=== PATIENT | male | born 1990 | race Caucasian/White ===

== ENCOUNTER 2018-10-01 07:18 | Emergency (ER) | payer SELFPAY ==
[2018-10-01] MEDS ORDERED: HYDROCODONE/APAP 5/325 MG TAB ONE (08:30)
--- NOTE | 2018-10-01 09:11 | RAD REPORT ---
EXAM DESCRIPTION: RAD - Wrist Left 3 View - 10/01/2018 8:46 am CLINICAL HISTORY: PAIN Pain COMPARISON: None FINDINGS: Left wrist and left hand- multiple projections are submitted There is no evidence of acute fracture or dislocation seen. Rounded foreign body is seen along the pa lmar soft tissues of the hand projecting between the fourth and fifth metacarpal shafts.
--- NOTE | 2018-10-01 09:39 | ER ---
Nurse's Notes [facility] Name: Ace Moran Age: 28 yrs Sex: Male : 1990 Arrival Date: 10/01/2018 Time: 07:25 Bed 14 Private MD: None, None Diagnosis: Contusion of left hand Presentation: 10/01 07:26 Presenting complaint: Patient states: c/o L hand pain afterusing a drill at home ss yesterday causing it to bend hand "backwards". Transition of care: patient was not received from another setting of care. Onset of symptoms was September 30, 2018. Risk Assessment: Do you want to hurt yourself or someone else? Patient reports no desire to harm self or others. Initial Sepsis Screen: Does the patient meet any 2 criteria? No. Patient's initial sepsis screen is negative. Does the patient have a suspected source of infection? No. Patient's initial sepsis screen is negative. Care prior to arrival: None. 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 - Social history:: Smoking status: Patient/guardian denies using tobacco. - Ebola Screening: : Patient denies exposure to infectious person Patient denies travel to an Ebola-affected area in the 21 days before illness onset. - Family history:: not pertinent. Vital Signs: 07:28 BP 131 / 94; Pulse 99; Resp 15; Temp 97.8(TE); Pulse Ox 100% on R/A; Height 5 ft. 9 in. ss (175.26 cm); Pain 8/10; ED Course: 07:25 Patient arrived in ED. sb2 07:25 None, None is Private Physician. sb2 07:27 Triage completed. ss 07:28 Arm band placed on right wrist. ss 07:30 Elis Stephenson MD is Attending Physician. ma2 08:19 Kaylene Gibbs RN is Primary Nurse. ss 08:40 X-ray completed. Portable x-ray completed in exam room. Patient tolerated procedure jb2 well. 08:44 Hand Left 3 View XRAY In Process Unspecified. EDMS 08:44 Wrist Left (3 View) XRAY In Process Unspecified. EDMS 09:33 Leighton wrap to left wrist. 3 09:49 No provider procedures requiring assistance completed. Patient did not have IV access ss during this emergency room visit. Administered Medications: 08:20 Drug: Maxbass 5 mg-325 mg 1 tabs Route: PO; 09:49 Follow up: Response: No adverse reaction; Pain is decreased Outcome: 09:39 Discharge ordered by . ma2 09:49 Discharged to home ambulatory, with family. 09:49 Condition: good 09:49 Discharge instructions given to patient, family, Instructed on discharge instructions, follow up and referral plans. medication usage, Demonstrated understanding of instructions, follow-up care, medications, Prescriptions given X 1. 09:49 Patient left the ED. 09:56 Patient left the ED. ss Signatures: Dispatcher [employer] EDHI Alessio Vera jb2 Kaylene Gibbs RN RN Tracy Dalton RN RN Jamari, Danelle dh3 Elis Stephenson MD MD sd2 Lorenza Rader 2
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
== END 2018-10-01 09:56 | disposition home or self-care (01) ==
LOC: ER 07:18
DX: S60.222A Contusion of left hand, initial encounter (principal)
CPT/HCPCS: 99284

== ENCOUNTER 2020-04-02 15:01 | Emergency (ER) | payer BC, SELFPAY ==
--- OUTSIDE RECORDS SUMMARY | 2020-04-02 15:03 | XMS REPORT | Clinical Summary ---
:1990 Author Organization [facility] Address [address] [place] [address] Care Team Providers Name Role Phone Pcp Primary Care Provider Unavailable Allergies Active Allergy Reactions Severity Noted Date Comments Hydrocodone-Acetaminophen Other (See Comments) Low 019 hiccoughs x5 days Medications Not on file Active Problems Not on file Encounters Date Type Specialty Care Team Description 04/06/2019 Anesthesia Event Missy Gardner CRNA 04/06/2019 Surgery Idalmis Almonte IMPLANT E XCHANGE,SANJAY Dykes MD 04/06/2019 Hospital Encounter Idalmis Almonte Vit reous prolapse of MD Donis right eye (Prim yenny Dx) after 04/02/2019 Social History Tobacco Use Types Packs/Day Years Used Date Current Every Day Smoker 0.5 Smokeless Tobacco: Never Used Tobacco Cessation: Ready to Quit: Yes; C ounseling Given: No Alcohol Use Drinks/Week oz/Week Comments No Alcohol Habits Answer Date Recorded How often do you have a drink containing alcohol? Never 04/06/2019 How many drinks containing alcohol do you have on a typical Not asked day when you are drinking? How often do you have six or more drinks on one occasion? No t asked Sex Assigned at Date Recorded Not on file Job Start Date Occupation Industry Not on file Not on file Not on file Travel History Travel Start Travel End No recent travel history available. Last Filed Vital Signs Vital Sign Reading Time Taken Blood Pressure 120/74 04/06/2019 11:30 AM CDT Pulse 72 04/06/2019 11:30 AM CDT Temperature 37.1 C (98.7 F) 04/06/2019 11:07 AM CDT Respiratory Rate 17 04/06/2019 11:30 AM CDT Oxygen Saturation 99% 04/06/2019 11:30 AM CDT Inhaled Oxygen Concentration - - Weight 72.6 kg (160 lb) 04/06/2019 8:08 AM CDT Height 175.3 cm (5' 9") 04/06/2019 8:08 AM CDT Body Mass Index 23.63 04/06/2019 8:08 AM CDT Plan of Treatment Not on file Implants Implanted Type Area Lemon Picker Device Shelf Model / Identifier Expiration Serial / Date Lot Stephany 3-Pc Posterior Chamber Iol 21.0d Ophthalmology Right: FAUSTO ZEISS:FAUSTO 01/30/2023 CT STEPHANY 602 21.0 / Implanted: Qty: 1 on 04/06/2019 by Idalmis Almonte MD Eye ZEISS [id number] / Procedures Procedure Name Priority Date/Time Associated Diagnosis Comme nts INJECTION,INTRAVITREAL 04/06/2019 8:55 AM Displacemen t of CDT intraocular lens, initial encounte r Vitreous prolapse of right eye Retinal hemorrhage of right eye Special Needs (MILADYS Jordan/ DR NUNO),(25 GA, M AC/RETRO BULBAR BLOCK) VITRECTOMY,FOCAL ENDOLASER 04/06/2019 8:55 AM Displac ement of intraocular PHOTOCOAGULATION CDT lens, initial e ncounter Vitreous prolaps e of right eye Retinal hemorrhage of right eye Special Needs (MILADYS Jordan/ DR NUNO),(25 GA, M AC/RETRO BULBAR BLOCK) PARACENTESIS,ANTERIOR CHAMBER OF 04/06/2019 8:5 5 AM Displacement of intraocular EYE CDT lens, initial en counter Vitreous prolapse of right eye Retinal hemorrhage of right eye Special Needs (MILADYS Jordan/ DR NUNO),(25 GA, M AC/RETRO BULBAR BLOCK) VITRECTOMY,MECHANICAL PARS PLANA 04/06/2019 8:5 5 AM Displacement of intraocular CDT lens, initial en counter Vitreous prolapse of right eye Retinal hemorrhage of right eye Special Needs (MILADYS Jordan/ DR NUNO),(25 GA, M AC/RETRO BULBAR BLOCK) IMPLANT EXCHANGE,IOL 04/06/2019 8:55 AM CDT Displacem ent of intraocular lens, initial encounte r Vitreous prolaps e of right eye Retinal hemorrhage of right eye Special Needs (MILADYS Jordan/ DR NUNO),(25 GA, M AC/RETRO BULBAR BLOCK) after 04/02/2019 Results Not on fileafter 04/02/2019 Insurance Payer Benefit Plan / Subscriber ID Type Phone Address Group BLUE CROSS/BLUE BCBS OS xxxxxxxxxxxx PPO [phone] [id number] SHIELD POS/PPO/[place] [address]
--- OUTSIDE RECORDS SUMMARY | 2020-04-02 15:04 | XMS REPORT | Continuity of Care Document ---
:1990 Author Organization [facility] t Address [address] [place] [address] Care Team Providers Name Role Phone Pcp Primary Care Physician Unavailable Hemmati OD Attending Clinician Angelika SANCHEZ Attending Clinician 3 Attending Clinician Unavailable Donis Almonte MD Attending Clinician Donis Almonte MD Attending Clinician Jj MINOR Attending Clinician Payers Payer Name Policy Type Policy Number Effective Date Expiration Date S villa BLUE CROSS/BLUE xxxxxxxxxxxx [facility] Medical POS/PPO/EPOxxxxx [place] [id number] [facility] [id number], [place] [address] Problems Condition Condition Condition Status Onset Resolution Last Treating Co mments Source Name Details Category Date Date Treatment Clinician Date Sprain of Sprain of Problem Active [facility] wrist, wrist, Memoria initial initial l encounter encounter Outp ati ent Clinics Pain in Pain in Problem Active [facility] joint of joint of [facility] - left wrist left wrist Me moria l Outpati ent Clinics Closed Closed Problem Active [facility] nondisplac nondisplac Deb kes - ed ed Memoria fracture fracture l of middle of middle Outp ati third of third of ent scaphoid scaphoid Clinic s bone of bone of right right wrist, wrist, initial initial encounter encounter Closed Closed Diagnosis Active [facility] nondisplac nondisplac Deb kes - ed ed Memoria fracture fracture l of middle of middle Outp ati third of third of ent scaphoid scaphoid Clinic s of left of left wrist with wrist with routine routine healing, healing, subsequent subsequent encounter encounter Nondisplac Nondisplac Problem Active [facility] - fracture fracture Memori a of middle of middle l third of third of Outpat i navicular navicular ent [scaphoid] [scaphoid] Cl inics bone of bone of right right wrist, wrist, subsequent subsequent encounter encounter for for fracture fracture with with delayed delayed healing healing Allergies, Adverse Reactions, Alerts Allergy Allergy Status Severity Reaction(s) Onset Inactive Treating Comm ents Source Name Type Date Date Clinician Hydrocod Propensi Active Other (See nitincoughkaleigh [facility] one-Acet ty to Comments) 8-05 x5 days Luke s - aminophe adverse 00:00: Medical n reaction 00 Center s Social History Social Habit Start Date Stop Date Quantity Comments Source History SDOH Alcohol [facility] - Std Drinks [facility] History SDOH Alcohol [facility] Binge [facility] Sex Assigned At [facility] Cigarettes smoked 2019-04-06 2019-04-06 [facility] - current (pack per 00:00:00 00:00:00 [facility] Center day) - Reported History SDOH Alcohol 2019-04-06 2019-04-[address] [facility] - Frequency 00:00:00 00:00:00 [facility] Smoking Status Start Date Stop Date Source Current every day smoker 2019-04-06 00:00:00 [facility] Medications This patient has no known medications. Vital Signs Vital Name Observation Time Observation Value Comments Source Systolic blood 2019-04-06 11:30:00 120 mm[Hg] [facility] pressure [facility] Diastolic blood 2019-04-06 11:30:00 74 mm[Hg] [facility] Heart rate 2019-04-06 11:30:00 72 /min [facility] Respiratory rate 2019-04-06 11:30:00 17 /min [facility] Oxygen saturation in 2019-04-06 11:30:00 99 /min [facility] - Arterial blood by Medical Ce nter Pulse oximetry Body temperature 2019-04-06 11:07:00 37.06 Mariah [facility] Body height 2019-04-06 08:08:00 175.3 cm [facility] Body weight Measured 2019-04-06 08:08:00 72.576 kg [facility] BMI 2019-04-06 08:08:00 23.63 kg/m2 [facility] Procedures Procedure Date / Time Performing Clinician Source Performed IMPLANT EXCHANGE,IOL 2019-04-06 08:55:00 Idalmis Almonte [facility] Donis [facility] VITRECTOMY,MECHANICAL PARS 2019-04-06 08:55:00 Alka Carney [facility] PARACENTESIS,ANTERIOR 2019-04-06 08:55:00 Alka Carney [facility] CHAMBER OF EYE [facility] VITRECTOMY,FOCAL ENDOLASER 2019-04-06 08:55:00 Alka Carney [facility] PHOTOCOAGULATION [facility] INJECTION,INTRAVITREAL 2019-04-06 08:55:00 Alka Carney [facility] Encounters Start End Encounter Admission Attending Care Care Encounter Source Date/Time Date/Time Type Type Clinicians Facility Department ID 2019-06-25 2019-06-25 Office HemTORI gil [id number] 10:03:44 11:02:29 Visit Ariana AMBULATOR [id number] Y [id number] [id number] 2019-06-09 2019-06-09 Office Alka Carney [id number] 07:58:08 08:18:08 Visit 3, Ods AMBULATOR [id number] Y [id number] [id number] 2019-05-05 2019-05-05 Office TORI Carney [id number] 09:31:26 11:13:37 Visit Alka AMBULATOR [id number] Y [id number] [id number] 2019-04-23 2019-04-23 Office Gage VALLE [id number] 08:42:13 08:52:13 Visit , Idalmis AMBULATOR 350.1.13.21 Donis Y 0.2.7.2.686 [id number] 2019-04-14 2019-04-14 Office Angelika MEGANAnita [id number] 09:22:19 09:37:19 Visit Alka AMBULATOR [id number] Y [id number] [id number] 2019-04-07 2019-04-07 Office Gage AVLLE [id number] 09:41:23 10:03:49 Visit , Idalmis AMBULATOR 350.1.13.21 Donis Y 0.2.7.2.686 [id number] 2019-04-07 2019-04-07 Office AngelikaMEGANAnita [id number] 08:37:41 08:52:41 Visit Alka AMBULATOR [id number] Y [id number] [id number] 2019-04-02 2019-04-02 Office Alka Carney MEGANAnita 1.2.840.11 [id number] 15:43:31 16:28:31 Visit 3, Ods AMBULATOR 350.1.13.21 Y [id number] 2018-12-29 2018-12-29 [facility] [id number] [facility] 10:30:00 10:30:00 [facility] 2018-11-26 2018-11-26 [facility] [id number] 08:30:00 08:30:00 [facility] 2018-10-29 2018-10-29 [facility] [id number] [address] 08:30:00 08:30:00 [facility] 2018-10-15 2018-10-15 Outpatient Shelby Maier [id number] [address] 09:00:00 09:00:00 [facility] Results This patient has no known results.
[2020-04-02] MEDS ORDERED: LIDOCAINE 1% MPF 5 ML VIAL ONE (15:40)
--- NOTE | 2020-04-02 16:03 | ER ---
Nurse's Notes [facility] Name: Ace Moran Age: 29 yrs Sex: Male : 1990 Arrival Date: 04/02/2020 Time: 15:04 Bed 20 Private MD: Diagnosis: Laceration of lip and oral cavity without foreign body Presentation: 04/02 15:11 Chief complaint: Patient states: Bitten by his own dog at home just prior to arrival. ss Laceration noted to R lower lip. No active bleeding noted at this time. Pt reports that dog was a 7 lb [place]ua, is UTD with vaccinations. Coronavirus screen: Client denies travel out of the [place] in the last 14 days. At this time, the client does not indicate any symptoms associated with coronavirus-19. Ebola Screen: Patient denies exposure to infectious person. Patient denies travel to an Ebola-affected area in the 21 days before illness onset. Initial Sepsis Screen: Does the patient meet any 2 criteria? No. Patient's initial sepsis screen is negative. Does the patient have a suspected source of infection? No. Patient's initial sepsis screen is negative. Risk Assessment: Do you want to hurt yourself or someone else? Patient reports no desire to harm self or others. Onset of symptoms was April 02, 2020. 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 - Social history:: Smoking status: Patient reports the use of cigarette tobacco products, smokes one-half pack cigarettes per day. Screenin:13 Abuse screen: Denies threats or abuse. Denies injuries from another. Nutritional ss screening: No deficits noted. Tuberculosis screening: Never had TB. Fall Risk None identified. Assessment: 15:19 Reassessment: [place] [employer] notified of dog bite. 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 Vital Signs: 15:11 BP 139 / 99; Pulse 95; Resp 17; Temp 98.4(TE); Pulse Ox 100% on R/A; Weight 77.11 kg; ss Height 5 ft. 9 in. (175.26 cm); Pain 8/10; 15:11 Body Mass Index 25.10 (77.11 kg, 175.26 cm) ED Course: 15:04 Patient arrived in ED. mr 15:13 Triage completed. 15:13 Arm band placed on right wrist. 15:21 Arturo Blackwell PA is PHCP. rust 15:21 Amos Fay MD is Attending Physician. rust 15:52 Raysa Mcmahon, RN is Primary Nurse. 16:13 Patient has correct armband on for positive identification. Bed in low position. Call ss light in reach. 16:13 No provider procedures requiring assistance completed. Patient did not have IV access ss during this emergency room visit. Administered Medications: 15:45 Drug: Lidocaine (1 %) 5 mg {Note: ADmin by ANDREW Warren.} Route: Infiltration; Outcome: 16:02 Discharge ordered by . rust 16:13 Discharged to home ambulatory. 16:13 Condition: good 16:13 Discharge instructions given to patient, Instructed on discharge instructions, follow up and referral plans. medication usage, wound care, Demonstrated understanding of instructions, follow-up care, medications, wound care, Prescriptions given X 1. 16:14 Patient left the ED. Signatures: Kaitlin Oscar mr GibbsKaylene, RN RN Arturo Blackwell PA PA rust Raysa Mcmahon, RN RN
--- NOTE | 2020-04-02 16:03 | EDPHYS ---
Physician Documentation [facility] Name: Ace Moran Age: 29 yrs Sex: Male : 1990 Arrival Date: 04/02/2020 Time: 15:04 Bed 20 Private MD: ED Physician Amos Fay HPI: 04/02 15:58 This 29 yrs old Male presents to ER via Ambulatory with complaints of Dog jr8 Bite, Laceration To Lip. 15:58 The patient was bitten on the mouth, by a dog, while playing, at home. Onset: The jr8 symptoms/episode began/occurred acutely, today. Animal information: The animal was reported to appear healthy. Animal's vaccinations are up to date. The animal is known and can be quarantined, Animal control has been notified. Secondary to the bite the patient reports a laceration, that is deep, irregular shaped, 2.5 cm(s). Associated signs and symptoms: The patient has no apparent associated signs or symptoms. Severity of symptoms: At their worst the symptoms were moderate, in the emergency department the symptoms are unchanged. The patient has not experienced similar symptoms in the past. The patient has not recently seen a physician. 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 - Social history:: Smoking status: Patient reports the use of cigarette tobacco products, smokes one-half pack cigarettes per day. ROS: 15:58 Eyes: Negative for injury, pain, redness, and discharge, ENT: Negative for injury, jr8 pain, and discharge, Neck: Negative for injury, pain, and swelling, Cardiovascular: Negative for chest pain, palpitations, and edema, Respiratory: Negative for shortness of breath, cough, wheezing, and pleuritic chest pain, Abdomen/GI: Negative for abdominal pain, nausea, vomiting, diarrhea, and constipation, Back: Negative for injury and pain, MS/Extremity: Negative for injury and deformity, Neuro: Negative for headache, weakness, numbness, tingling, and seizure. 15:58 Skin: Positive for laceration(s), of the mouth. Exam: 15:58 Head/Face: Normocephalic, atraumatic. Eyes: Pupils equal round and reactive to light, jr8 extra-ocular motions intact. Lids and lashes normal. Conjunctiva and sclera are non-icteric and not injected. Cornea within normal limits. Periorbital areas with no swelling, redness, or edema. ENT: Nares patent. No nasal discharge, no septal abnormalities noted. Tympanic membranes are normal and external auditory canals are clear. Oropharynx with no redness, swelling, or masses, exudates, or evidence of obstruction, uvula midline. Mucous membranes moist. 2.5 cm laceration to right lower lip crossing into hung border. Orbicularis omar muscle without injury Neck: Trachea midline, no thyromegaly or masses palpated, and no cervical lymphadenopathy. Supple, full range of motion without nuchal rigidity, or vertebral point tenderness. No Meningismus. Cardiovascular: Regular rate and rhythm with a normal S1 and S2. No gallops, murmurs, or rubs. Normal PMI, no JVD. No pulse deficits. Respiratory: Lungs have equal breath sounds bilaterally, clear to auscultation and percussion. No rales, rhonchi or wheezes noted. No increased work of breathing, no retractions or nasal flaring. Skin: Warm, dry with normal turgor. Normal color with no rashes, no lesions, and no evidence of cellulitis. MS/ Extremity: Pulses equal, no cyanosis. Neurovascular intact. Full, normal range of motion. Neuro: Awake and alert, GCS 15, oriented to person, place, time, and situation. Cranial nerves II-XII grossly intact. Motor strength 5/5 in all extremities. Sensory grossly intact. Cerebellar exam normal. Normal gait. Vital Signs: 15:11 BP 139 / 99; Pulse 95; Resp 17; Temp 98.4(TE); Pulse Ox 100% on R/A; Weight 77.11 kg; ss Height 5 ft. 9 in. (175.26 cm); Pain 8/10; 15:11 Body Mass Index 25.10 (77.11 kg, 175.26 cm) ss Laceration: 15:58 Wound Repair of 2.5cm ( 1.0in ) mucosal laceration to lower lip. Distal jr8 neuro/vascular/tendon intact. Anesthesia: Local anesthetic administered with 2 mls of 1% lidocaine. Wound prep: Moderate cleansing with betadine, Wound irrigation with saline, Wound explored extensively. Mucosal layer closed with 4 5-0 fast absorbing chromic using interrupted sutures and sterile technique. Patient tolerated well. MDM: 15:21 Patient medically screened. jr8 15:58 Data reviewed: vital signs, nurses notes, and as a result, I will discharge patient. jr8 Data interpreted: Pulse oximetry: on room air is 100 %. Interpretation: normal. Counseling: I had a detailed discussion with the patient and/or guardian regarding: the historical points, exam findings, and any diagnostic results supporting the discharge/admit diagnosis, the need for outpatient follow up, a family practitioner, to return to the emergency department if symptoms worsen or persist or if there are any questions or concerns that arise at home. 04/02 15:58 Order name: Chromic, Sutures; Complete Time: 15:59 jr8 04/02 15:58 Order name: Dressing - Wound; Complete Time: 15:59 jr8 04/02 15:58 Order name: Gloves, Sterile; Complete Time: 15:59 jr8 04/02 15:58 Order name: Setup Suture Tray; Complete Time: 15:59 jr8 Administered Medications: 15:45 Drug: Lidocaine (1 %) 5 mg {Note: ADmin by ANDREW Warren.} Route: Infiltration; Disposition: 16:20 Co-signature as Attending Physician, Amos Fay MD I agree with the assessment and kdr plan of care. Disposition: 04/02/20 16:02 Discharged to Home. Impression: Laceration of lip and oral cavity without foreign body. - Condition is Stable. - Discharge Instructions: Mouth Laceration. - Prescriptions for Augmentin 875- 125 mg Oral Tablet - take 1 tablet by ORAL route every 12 hours for 10 days; 20 tablet. - Medication Reconciliation Form, Thank You Letter, Antibiotic Education, Prescription Opioid Use form. - Follow up: Private Physician; When: 1 week; Reason: Wound Recheck, Recheck today's complaints, Continuance of care, Re-evaluation by your physician. - Problem is new. - Symptoms have improved. Signatures: Amos Fay MD MD kdr Smirch, Shelby, RN RN Arturo Blackwell PA PA jr8 Corrections: (The following items were deleted from the chart) 16:14 16:02 04/02/2020 16:02 Discharged to Home. Impression: Laceration of lip and oral ss cavity without foreign body. Condition is Stable. Forms are Medication Reconciliation Form, Thank You Letter, Antibiotic Education, Prescription Opioid Use. Follow up: Private Physician; When: 1 week; Reason: Wound Recheck, Recheck today's complaints, Continuance of care, Re-evaluation by your physician. Problem is new. Symptoms have improved. jr8
[2020-04-02 16:20] VITALS: BP 139/99; TEMP 98.4; O2SAT 100
== END 2020-04-02 16:14 | disposition home or self-care (01) ==
LOC: ER 15:01
PROC: 0CQ1XZZ Repair Lower Lip, External Approach (ICD-10-PCS; principal; 2020-04-02)
DX: S01.511A Laceration without foreign body of lip, initial encounter (principal); W54.0XXA Bitten by dog, initial encounter; Y93.89 Activity, other specified; Y92.009 Unspecified place in unspecified non-institutional (private) residence as the place of occurrence of the external cause; F17.210 Nicotine dependence, cigarettes, uncomplicated
CPT/HCPCS: 99283

== ENCOUNTER 2022-09-06 06:23 | Emergency (ER) | payer BC, SELFPAY ==
--- OUTSIDE RECORDS SUMMARY | 2022-09-06 06:27 | XMS REPORT | Continuity of Care Document ---
:1990 Author Organization [facility] t Address [address] [place] [address] Care Team Providers Name Role Phone No, Pcp [facility] Primary Care Physician Unavailable Ariana Torres OD Attending Clinician Angelika SANCHEZ, Alka Attending Clinician 3, Jonah Attending Clinician Unavailable Gage SANCHEZ, Idalmis Dykes Attending Clinician [phone] Payers Payer Name Policy Type Policy Number Effective Date Expiration Date S ource Problems Condition Condition Condition Status Onset Resolution Last Treating Co mments Source Name Details Category Date Date Treatment Clinician Date Sprain of Sprain of Problem Active Com mon left left Spirit wrist, wrist, - [facility] encounter encounter [facility] Pain in Pain in Problem Active Common joint of joint of Spirit left wrist left wrist - [facility] No known No known Disease [facility] active active [place] problems problems of Medicin e Closed Closed Problem Active Common nondisplac nondisplac Sp dieter ed ed - [facility] fracture fracture [facility] of middle of middle Luke s third of third of Medica l scaphoid scaphoid Center bone of bone of right right wrist, wrist, initial initial encounter encounter Closed Closed Diagnosis Active Common nondisplac nondisplac Sp dieter ed ed - [facility] fracture fracture [facility] of middle of middle Luke s third of third of Medica l scaphoid scaphoid Center of left of left wrist with wrist with routine routine healing, healing, subsequent subsequent encounter encounter Nondisplac Nondisplac Problem [facility] Spirit fracture fracture - [facility] of middle of middle St third of third of [facility]ukes navicular navicular Medi shannon [scaphoid] [scaphoid] Ce nter bone of bone of right right wrist, wrist, subsequent subsequent encounter encounter for for fracture fracture with with delayed delayed healing healing Allergies, Adverse Reactions, Alerts Allergy Allergy Status Severity Reaction(s) Onset Inactive Treating Comm ents Source Name Type Date Date Clinician Hydrocod Propensi Active Other (See hiccoughs [facility] one-Acet ty to Comments) 04-06 x5 days Luke s aminophe adverse 00:00: Medical n reaction 00 Center s Hydrocod Propensi Active Mild Other [facility] one-Acet ty to 04-06 reaction( Colle ge aminophe adverse 00:00: s): Other of n reaction 00 (See Medicin s to Comments) e drug hiccoughs x5 days Hydrocod Propensi Active [facility] ty to 04-02 [place] adverse 00:00: of reaction 00 Medicin s to e drug Social History Social Habit Start Date Stop Date Quantity Comments Source History of tobacco Cigarette Smoker [facility] use of Medicine History [facility] Alcohol Comment Medical C enter History SDOH [facility] Alcohol Std Drinks Medica l Center History SDSC [facility] Alcohol Binge Medical Addie ter Cigarettes smoked 2019-04-06 2019-04-[address] [facility] current (pack per 00:00:00 00:00:00 Medical Center day) - Reported Tobacco use and 2019-04-06 2019-04-[address] [facility] exposure 00:00:00 00:00:00 [facility] Alcohol intake 2019-04-06 2019-04-[address] [facility] 00:00:00 00:00:00 non-drinker of Medical Ce nter alcohol (finding) History SDOH 2019-04-06 2019-04-[address] [facility] Alcohol Frequency 00:00:00 00:00:00 [facility] Sex Assigned At [address] [facility] 00:00:00 [facility]00 [facility] Center Smoking Status Start Date Stop Date Source Current some day smoker 2019-06-25 00:00:00 [facility] Current every day smoker 2019-04-06 00:00:00 [facility] Medications Ordered Filled Start Stop Current Ordering Indication Dosage Frequency Signature Comments Components Source Medication Medication Date Date Medication? Clinician (SIG) Name Name Diflupredna 2018-09 2019- No 1[drp] Place 1 [facility] te (DUREZOL 0-08 10-08 Drop into Co llege OP) 13:24: 00:00 the right of 19 :00 eye two Medicin times e daily. Bromfenac 2018-09 2019- No 1[drp] Place 1 [facility] Sodium 0-08 10-08 Drop into College (PROLENSA) 13:24: 00:00 the right o f 0.07 % SOLN 16 :00 eye daily. Me dicin e dorzolamide 2018-09 2019- No 1[drp] Place 1 [facility] -timolol 0-08 10-08 Drop into Colle ge (COSOPT) 00:00: 00:00 the right of 22.3-6.8 00 :00 eye two Medicin MG/ML times e ophthalmic daily. solution Diflupredna 2018-0 Yes 1[drp] Place 1 B abimael te (DUREZOL 9-03 Drop into Col lege OP) 14:46: the right of 03 eye two Medicin times e daily. Bromfenac 2019-0 Yes 1[drp] Place 1 [facility] maria Sodium 9-03 Drop into College (PROLENSA) 14:46: the right of 0.07 % SOLN 03 eye daily. Me dicin e Bromfenac 2019-0 Yes 1[drp] Place 1 [facility] maria Sodium 8-13 Drop into College (PROLENSA) 15:34: the right of 0.07 % SOLN 47 eye daily. Me dicin e Bromfenac 2019-0 Yes 1[drp] Place 1 [facility] maria Sodium 8-13 Drop into College (PROLENSA) 15:34: the right of 0.07 % SOLN 47 eye daily. Me dicin e Latanoprost 2019- 2019- No 1[drp] Place 1 [facility] alek Bunod 8-13 08-13 Drop into Renata ege (VYZULTA 14:47: 00:00 the right of OP) 49 :00 eye daily. Medicin e Diflupredna 2019-0 Yes 1[drp] Place 1 [facility] te (DUREZOL 8-13 Drop into Col lege OP) 14:47: the right of 28 eye two Medicin times e daily. Diflupredna 2019-0 Yes 1[drp] Place 1 [facility] te (DUREZOL 8-13 Drop into Col lege OP) 14:47: the right of 28 eye two Medicin times e daily. Brimonidine 2019-0 2019- No Apply to [facility] Tartrate-Ti 8-13 08-13 eye. [place] molol 14:46: 00:00 of (COMBIGAN 58 :00 Medicin OP) e dorzolamide 2019-0 Yes 1[drp] Place 1 [facility] -timolol 8-13 Drop into Colleg e (COSOPT) 00:00: the right of 22.3-6.8 00 eye two Medicin MG/ML times e ophthalmic daily. solution dorzolamide 2019-0 Yes 1[drp] Place 1 [facility] -timolol 8-13 Drop into Colleg e (COSOPT) 00:00: the right of 22.3-6.8 00 eye two Medicin MG/ML times e ophthalmic daily. solution dorzolamide 2019-0 Yes 1[drp] Place 1 [facility] -timolol 8-13 Drop into Colleg e (COSOPT) 00:00: the right of 22.3-6.8 00 eye two Medicin MG/ML times e ophthalmic daily. solution dorzolamide 2019-0 2019- No 1[drp] Place 1 [facility] -timolol 8-13 10-08 Drop into Colle ge (COSOPT) 00:00: 00:00 the right of 22.3-6.8 00 :00 eye two Medicin MG/ML times e ophthalmic daily. solution Diflupredna 2019-0 Yes Apply to [facility] te (DUREZOL 8-06 eye. [place] OP) 14:58: of 53 Medicin e Brimonidine 2019-0 Yes Apply to [facility] Tartrate-Ti 8-06 eye. [place] molol 14:58: of (COMBIGAN 53 Medicin OP) e Latanoprost 2019-0 Yes Apply to [facility] alek Bunod 8-06 eye. [place] (VYZULTA 14:58: of OP) 53 Medicin e Diflupredna 2019-0 Yes Apply to [facility] te (DUREZOL 8-01 eye. [place] OP) 19:56: of 26 Medicin e Brimonidine 2019-0 Yes Apply to [facility] Tartrate-Ti 8-01 eye. [place] molol 19:56: [facility] Medic[facility]) e Latanoprost 2019-0 Yes Apply to [facility] alek Bunod 8-01 eye. [place] (VYZULTA 19:56: of OP) 26 Medicin e Diflupredna 2019-0 Yes Apply to Ba [facility] te (DUREZOL 8-01 eye. [place] OP) 19:56: of 26 Medicin e Brimonidine 2019-0 Yes Apply to [facility] Tartrate-Ti 8-01 eye. [place] molol 19:56: of [facility] Medicin OP) e Latanoprost 2019-0 Yes Apply to [facility] alek Bunod 8-01 eye. [place] (VYZULTA 19:56: of OP) 26 Medicin e trimethopri 2019-0 Yes 1[drp] Place 1 [facility] m-polymyxin 8-01 Drop into Col lege b 00:00: the right of (POLYTRIM) 00 eye 3 Medicin ophthalmic times e solution daily. trimethopri 2019-0 Yes 1[drp] Place 1 [facility] m-polymyxin 8-01 Drop into Col lege b 00:00: the right of (POLYTRIM) 00 eye 3 Medicin ophthalmic times e solution daily. trimethopri 2019-0 Yes 1[drp] Place 1 [facility] m-polymyxin 8-01 Drop into Col lege b 00:00: the right of (POLYTRIM) 00 eye 3 Medicin ophthalmic times e solution daily. trimethopri 2019-0 2019- No 1[drp] Place 1 [facility] m-polymyxin 8-01 08-13 Drop into Co llege b 00:00: 00:00 the right of (POLYTRIM) 00 :00 eye 3 Medicin ophthalmic times e solution daily. No known No [facility] e Procedures Procedure Date / Time Performed Performing Clinician [facility] e OCT, RETINA - OD - RIGHT 2019-06-09 13:52:38 Alka Carney [facility]ina maria [employer] [place] COMPUTERIZED 2019-04-02 20:54:39 Alka Carney [facility] Cipriano corey of OPHTHALMIC IMAGING Medicine RETINA Plan of Care Planned Activity Planned Date Details Comments Source Future Scheduled HIV SCREENING [code [employer] or [employer] of Test = HIV SCREENING] Medicine Future Scheduled FLU VACCINE > 6 [facility] C ollege of Test MONTHS [code = FLU Medicine VACCINE > 6 MONTHS] Future Scheduled TETANUS SHOT [facility] Renata ege of Test (ADULT) [code = Medicine TETANUS SHOT (ADULT)] Future Scheduled HIV SCREENING [code [employer] of Test = HIV SCREENING] Medicine Future Scheduled FLU VACCINE > 6 [facility] C ollege of Test MONTHS [code = FLU Medicine VACCINE > 6 MONTHS] Future Scheduled TETANUS SHOT [facility] Renata ege of Test (ADULT) [code = Medicine TETANUS SHOT (ADULT)] Future Scheduled HIV SCREENING [code [facility] or [place] of Test = HIV SCREENING] Medicine Future Scheduled FLU VACCINE > 6 [facility] C [facility]lege of Test MONTHS [code = FLU Medicine VACCINE > 6 MONTHS] Future Scheduled TETANUS SHOT [facility] Renata ege of Test (ADULT) [code = Medicine TETANUS SHOT (ADULT)] Future Scheduled HIV SCREENING [code [employer] or [place] of Test = HIV SCREENING] Medicine Future Scheduled FLU VACCINE > 6 [facility] C ollege of Test MONTHS [code = FLU Medicine VACCINE > 6 MONTHS] Future Scheduled TETANUS SHOT [facility] e[facility] of Test (ADULT) [code = Medicine TETANUS SHOT (ADULT)] Future Scheduled [place] SPECIAL EYE Ordered: [facility] llege of Test EXAM, INITIAL [code 04/02/2019 Medicine = 72962] Future Scheduled HIV SCREENING [code [employer] or [place] of Test = HIV SCREENING] Medicine Future Scheduled FLU VACCINE > 6 [facility] C ollege of Test MONTHS [code = FLU Medicine VACCINE > 6 MONTHS] Future Scheduled TETANUS SHOT [facility] Renata ege of Test (ADULT) [code = Medicine TETANUS SHOT (ADULT)] Future Scheduled HIV SCREENING [code [employer] or [place] of Test = HIV SCREENING] Medicine Future Scheduled FLU VACCINE > 6 [facility] C [facility]lege of Test MONTHS [code = FLU Medicine VACCINE > 6 MONTHS] Future Scheduled TETANUS SHOT [facility]ata e[facility] of Test (ADULT) [code = Medicine TETANUS SHOT (ADULT)] Future Scheduled HIV SCREENING [code [employer] of Test = HIV SCREENING] Medicine Future Scheduled FLU VACCINE > 6 [facility] C ollege of Test MONTHS [code = FLU Medicine VACCINE > 6 MONTHS] Future Scheduled TETANUS SHOT [facility] Renata ege of Test (ADULT) [code = Medicine TETANUS SHOT (ADULT)] Future Scheduled HIV SCREENING [code [facility] or College of Test = HIV SCREENING] Medicine Future Scheduled FLU VACCINE > 6 [facility] C ollege of Test MONTHS [code = FLU Medicine VACCINE > 6 MONTHS] Future Scheduled TETANUS SHOT [facility] ege of Test (ADULT) [code = Medicine TETANUS SHOT (ADULT)] Encounters Start End Encounter Admission Attending Care Care Encounter Source Date/Time Date/Time Type Type Clinicians Facility Department ID 2019-06-25 2019-06-25 Office HemTORI gil [id number] 10:03:44 11:02:29 Visit Ariana AMBULATOR [id number] Y 0.2.7.2.686 [id number] [facility] 2019-06-25 2019-06-25 Office TORI Torres [id number] [facility] 10:03:44 11:02:29 Visit Ariana AMBULATOR 350.1.13.21 College Y 0.2.7.2.686 of [id number] [facility] 300 e 2019-06-09 2019-06-09 Office Alka Carney 1.2.840.11 [id number] 07:58:08 08:18:08 Visit 3, Ods AMBULATOR 350.1.13.21 Y 0.2.7.2.686 [id number] 300 2019-06-09 2019-06-09 Office Alka Carney 1.2.840.11 [id number] [facility] 07:58:08 08:18:08 Visit 3, Ods AMBULATOR 350.1.13.21 College Y 0.2.7.2.686 of [id number] [facility] 300 e 2019-05-05 2019-05-05 Office TORI Carney [id number] 09:31:26 11:13:37 Visit Alka AMBULATOR 350.1.13.21 Y 0.2.7.2.686 [id number] 300 2019-05-05 2019-05-05 Office TORI Carney [id number] [facility] 09:31:26 11:13:37 Visit Alka AMBULATOR 350.1.13.21 College Y 0.2.7.2.686 of [id number] Medi kaitlin 300 e 2019-04-23 2019-04-23 Office Gage VALLE 1.2.840.114 [id number] 08:42:13 08:52:13 Visit , Idalmis AMBULATOR 350.1.13.21 Donis Y 0.2.7.2.686 [id number] 300 2019-04-23 2019-04-23 Office Gage VALLE 1.2.840.114 [id number] [facility] 08:42:13 08:52:13 Visit , Idalmis AMBULATOR 350.1.13.21 College Donis Y 0.2.7.2.[id number] [facility] kaitlin 300 e 2019-04-14 2019-04-14 Office TORI Carney 1.2.840.114 [id number] 09:22:19 09:37:19 Visit Alka AMBULATOR 350.1.13.21 Y 0.2.7.2.686 [id number] 300 2019-04-14 2019-04-14 Office TORI Carney 1.2.840.114 [id number] [facility] 09:22:19 09:37:19 Visit Alka AMBULATOR 350.1.13.21 College Y 0.2.7.2.[id number] [facility] kaitlin 300 e 2019-04-07 2019-04-07 Office Gage VALLE 1.2.840.114 [id number] 09:41:23 10:03:49 Visit , Idalmis AMBULATOR 350.1.13.21 Donis Y 0.2.7.2.686 [id number] 300 2019-04-07 2019-04-07 Office Gage VALLE 1.2.840.114 [id number] [facility] 09:41:23 10:03:49 Visit , Idamlis AMBULATOR 350.1.13.21 College Donis Y 0.2.7.2.686 of [id number] Medi kaitlin 300 e 2019-04-07 2019-04-07 Office TORI Carney 1.2.840.114 [id number] 08:37:41 08:52:41 Visit Alka AMBULATOR 350.1.13.21 Y 0.2.7.2.686 [id number] 300 2019-04-07 2019-04-07 Office TORI Carney 1.2.840.[id number] [place] [address] 08:37:41 08:52:41 Visit Alka AMBULATOR 350.1.13.21 College Y 0.2.7.2.686 of [id number] [facility] 300 e 2019-04-02 2019-04-02 Office Alka Carney MEGANAnita 1.2.840.11 [id number] 15:43:31 16:28:31 Visit 3, Ods AMBULATOR 350.1.13.21 Y 0.2.7.2.686 [id number] 300 2019-04-02 2019-04-02 Office Alka Carney MEGANAnita 1.2.840.11 [id number] [facility] 15:43:31 16:28:31 Visit 3, Ods AMBULATOR 350.1.13.21 College Y 0.2.7.2.686 of [id number] [facility] 300 e 2018-12-29 2018-12-29 Outpatient [facility] 24 [id number] Common 10:30:00 10:30:00 t [facility] 2018-11-26 2018-11-26 [facility] [id number] Common 08:30:00 08:30:00 t Bone Bone [facility] Spiri t and Joint [facility] - [facility] 2018-10-29 2018-10-29 Out[facility] [id number] Common 08:30:00 08:30:00 t Bone Bone [facility] Spiri t and Joint [facility] - [facility] 2018-10-15 2018-10-15 [facility] 23 [id number] Common 09:00:00 09:00:00 t [facility] Bone [facility] Results Test Description Test Time Test Comments Results Result Sour e Comments OCT, RETINA - OD 2019-06-09 [place] OCTOD: [facility] - RIGHT EYE 13:57:25 310, wnlOS: 335, College of mild irregularity Medicin e along inner surface, blood still there, but much improved and no evident fluid centrally
[2022-09-06] MEDS ORDERED: MAGNES/ALUMIN/SIMET 30ML UCUP ONE (07:10)
[2022-09-06] MEDS ORDERED: LIDOCAINE VISCOUS 2% SOLN 15 ML UDC ONE (07:10)
[2022-09-06] MEDS ORDERED: DICYCLOMINE HCL 10 MG CAP ONE (07:10)
--- NOTE | 2022-09-06 08:07 | RAD REPORT ---
EXAM DESCRIPTION: RAD - Chest Pa And Lat (2 Views) - 09/06/2022 7:50 am CLINICAL HISTORY: hiccoughs COMPARISON: No comparisons FINDINGS: Lines: None. Lungs: No evidence of edema or pneumonia. Pleural: No significant pleural effusions or pneumothorax. Cardiac: The heart size is within normal limits. Mediastinum: Within normal limits. Bones: No acute fractures. Other: None IMPRESSION: No acute cardiopulmonary disease.
--- NOTE | 2022-09-06 08:27 | ER ---
Nurse's Notes [facility] Name: Ace Moran Age: 32 yrs Sex: Male : 1990 Arrival Date: 09/06/2022 Time: 06:27 Bed IW2 Private MD: Diagnosis: Hiccough Presentation: 09/06 06:29 Chief complaint: Patient states: hiccups x 5 ays. Coronavirus screen: Vaccine status: Patient reports being unvaccinated. Ebola Screen: Patient negative for fever greater than or equal to 101.5 degrees Fahrenheit, and additional compatible Ebola Virus Disease symptoms. Initial Sepsis Screen: Does the patient meet any 2 criteria? No. Patient's initial sepsis screen is negative. Does the patient have a suspected source of infection? No. Patient's initial sepsis screen is negative. Risk Assessment: Do you want to hurt yourself or someone else? Patient reports no desire to harm self or others. Onset of symptoms was September 02, 2022. 06:29 Method Of Arrival: Ambulatory 06:29 Acuity: REG 4 Triage Assessment: 06:30 General: Appears distressed, uncomfortable, well groomed, well developed, Behavior is kl calm, cooperative. Pain: Complains of pain in chest. GI: Reports intolerance of fluids, intolerance of food, nausea, vomiting. Historical: - Allergies: 06:30 No Known Allergies; - Home Meds: 06:30 None [Active]; kl - PMHx: 06:30 None; kl - PSHx: 06:30 None; - Immunization history:: Adult Immunizations not up to date. - Social history:: Smoking status: Patient denies any tobacco usage or history of. Screenin:36 Abuse screen: Denies threats or abuse. Nutritional screening: No deficits noted. ll1 Tuberculosis screening: No symptoms or risk factors identified. 08:50 [facility] ED Fall Risk Assessment (Adult) Score/Fall Risk Level 0 - 2 = Low Risk ll1 Oriented to surroundings, Maintained a safe environment, Hourly rounding (assess needs \T\ fall precautionary measures) done. Assessment: 07:15 Reassessment: No changes from previously documented assessment. Patient and/or family ll1 updated on plan of care and expected duration. Pain level reassessed. Patient is alert, oriented x 3, equal unlabored respirations, skin warm/dry/pink. 08:50 Reassessment: No changes from previously documented assessment. Patient and/or family ll1 updated on plan of care and expected duration. Pain level reassessed. Patient is alert, oriented x 3, equal unlabored respirations, skin warm/dry/pink. Patient states symptoms have not improved. Vital Signs: 06:29 BP 114 / 88; Pulse 78; Resp 18; Temp 98.4(TE); Pulse Ox 97% on R/A; Weight 79.38 kg kl (R); Height 5 ft. 9 in. (175.26 cm); Pain 8/10; 08:50 BP 114 / 69; Pulse 75; Resp 17; Pulse Ox 97% ; ll1 06:29 Body Mass Index 25.84 (79.38 kg, 175.26 cm) ED Course: 06:27 Patient arrived in ED. ja2 06:30 Triage completed. kl 06:48 Emma Raymond FNP-C is PHCP. snw 06:48 Mac Armendariz DO is Attending Physician. snw 07:13 Hal Bellamy, RN is Primary Nurse. ll1 07:52 Chest Pa And Lat (2 Views) XRAY In Process Unspecified. EDMS 08:36 Arm band placed on left wrist. ll1 08:36 Patient has correct armband on for positive identification. ll1 08:50 No provider procedures requiring assistance completed. Patient did not have IV access ll1 during this emergency room visit. Administered Medications: 07:13 Drug: Dicyclomine 20 mg Route: PO; ll1 08:35 Follow up: Response: No adverse reaction ll1 07:13 Drug: GI Cocktail without - (Maalox Suspension 30 ml, Lidocaine Liquid 2 % 15 ll1 ml) Route: PO; 08:35 Follow up: Response: No adverse reaction ll1 08:35 Drug: Reglan (metoCLOPramide) 10 mg Route: IM; Site: right gluteus; ll1 08:50 Follow up: Response: No adverse reaction ll1 Medication: 08:51 VIS not applicable for this client. ll1 Outcome: 08:26 Discharge ordered by . snw 08:50 Discharged to home ambulatory. ll1 08:50 Condition: stable 08:50 Discharge instructions given to patient, Instructed on discharge instructions, follow up and referral plans. medication usage, Demonstrated understanding of instructions, follow-up care, medications, Prescriptions given X 2. 08:51 Patient left the ED. ll1 Signatures: Dispatcher [employer] EDKimi Ball RN RN kl Waters, Shelly, CORRECTIONAL COUNSELOR-C CORRECTIONAL COUNSELOR-Tenaw Hal Bellamy RN RN ll1 Merlyn Monge
--- NOTE | 2022-09-06 08:27 | EDPHYS ---
Physician Documentation [facility] Name: Ace Moran Age: 32 yrs Sex: Male : 1990 Arrival Date: 09/06/2022 Time: 06:27 Bed IW2 Private MD: ED Physician Mca Armendariz HPI: 09/06 07:24 This 32 yrs old Male presents to ER via Ambulatory with complaints of Neck and Upper snw Back Pain, Neck Problem, Sore Throat, Chest Pain. 07:25 The patient presents with persistent hiccoughs. Onset: The symptoms/episode snw began/occurred suddenly, 5 day(s) ago, and became persistent. The symptoms do not radiate. Associated signs and symptoms: Pertinent positives: nausea and vomiting, anorexia, insomnia. The symptoms are described as waxing/waning. Severity of pain: At its worst the pain was moderate. The patient has not experienced similar symptoms in the past. The patient has not recently seen a physician. Historical: - Allergies: 06:30 No Known Allergies; kl - Home Meds: 06:30 None [Active]; kl - PMHx: 06:30 None; kl - PSHx: 06:30 None; kl - Immunization history:: Adult Immunizations not up to date. - Social history:: Smoking status: Patient denies any tobacco usage or history of. ROS: 07:23 Constitutional: Negative for fever, chills, and weight loss, Eyes: Negative for injury, snw pain, redness, and discharge, ENT: Negative for injury, pain, and discharge, Neck: Negative for injury, pain, and swelling, Cardiovascular: Negative for chest pain, palpitations, and edema, Respiratory: Negative for shortness of breath, cough, wheezing, and pleuritic chest pain, Back: Negative for injury and pain, : Negative for injury, bleeding, discharge, and swelling, MS/Extremity: Negative for injury and deformity, Skin: Negative for injury, rash, and discoloration, Neuro: Negative for headache, weakness, numbness, tingling, and seizure, Psych: Negative for depression, anxiety, suicide ideation, homicidal ideation, and hallucinations. 07:23 Abdomen/GI: Positive for hiccoughs x 5 days. Pt with some vomiting. Unable to sleep or stop with the hiccoughs. Exam: 07:23 Constitutional: This is a well developed, well nourished patient who is awake, alert, snw and in no acute distress. Head/Face: Normocephalic, atraumatic. Eyes: Pupils equal round and reactive to light, extra-ocular motions intact. Lids and lashes normal. Conjunctiva and sclera are non-icteric and not injected. Cornea within normal limits. Periorbital areas with no swelling, redness, or edema. ENT: Nares patent. No nasal discharge, no septal abnormalities noted. Tympanic membranes are normal and external auditory canals are clear. Oropharynx with no redness, swelling, or masses, exudates, or evidence of obstruction, uvula midline. Mucous membranes moist. Neck: Trachea midline, no thyromegaly or masses palpated, and no cervical lymphadenopathy. Supple, full range of motion without nuchal rigidity, or vertebral point tenderness. No Meningismus. Chest/axilla: Normal chest wall appearance and motion. Nontender with no deformity. No lesions are appreciated. Cardiovascular: Regular rate and rhythm with a normal S1 and S2. No gallops, murmurs, or rubs. Normal PMI, no JVD. No pulse deficits. Respiratory: Lungs have equal breath sounds bilaterally, clear to auscultation and percussion. No rales, rhonchi or wheezes noted. No increased work of breathing, no retractions or nasal flaring. Back: No spinal tenderness. No costovertebral tenderness. Full range of motion. Skin: Warm, dry with normal turgor. Normal color with no rashes, no lesions, and no evidence of cellulitis. MS/ Extremity: Pulses equal, no cyanosis. Neurovascular intact. Full, normal range of motion. Neuro: Awake and alert, GCS 15, oriented to person, place, time, and situation. Cranial nerves II-XII grossly intact. Motor strength 5/5 in all extremities. Sensory grossly intact. Cerebellar exam normal. Normal gait. Psych: Awake, alert, with orientation to person, place and time. Behavior, mood, and affect are within normal limits. 07:23 Abdomen/GI: Inspection: abdomen appears normal, Bowel sounds: normal, Palpation: abdomen is soft and non-tender, +hiccoughs every 1-2 minutes. Vital Signs: 06:29 BP 114 / 88; Pulse 78; Resp 18; Temp 98.4(TE); Pulse Ox 97% on R/A; Weight 79.38 kg kl (R); Height 5 ft. 9 in. (175.26 cm); Pain 8/10; 08:50 BP 114 / 69; Pulse 75; Resp 17; Pulse Ox 97% ; ll1 06:29 Body Mass Index 25.84 (79.38 kg, 175.26 cm) kl MDM: 06:51 Patient medically screened. snw 08:27 Differential diagnosis: gastritis, gastroesophageal reflux disease, Peptic Ulcer snw Disease. Data reviewed: vital signs, nurses notes. Data interpreted: Pulse oximetry: on room air is 97 %. Interpretation: normal. Counseling: I had a detailed discussion with the patient and/or guardian regarding: the historical points, exam findings, and any diagnostic results supporting the discharge/admit diagnosis, radiology results, the need for outpatient follow up, to return to the emergency department if symptoms worsen or persist or if there are any questions or concerns that arise at home. Response to treatment: the patient's symptoms have mildly improved after treatment. Special discussion: Based on the history and exam findings, there is no indication for further emergent testing or inpatient evaluation. I discussed with the patient/guardian the need to see the primary care provider for further evaluation of the symptoms. 09/06 07:03 Order name: Chest Pa And Lat (2 Views) XRAY; Complete Time: 08:13 snw Administered Medications: 07:13 Drug: Dicyclomine 20 mg Route: PO; ll1 08:35 Follow up: Response: No adverse reaction ll1 07:13 Drug: GI Cocktail without - (Maalox Suspension 30 ml, Lidocaine Liquid 2 % 15 ll1 ml) Route: PO; 08:35 Follow up: Response: No adverse reaction ll1 08:35 Drug: Reglan (metoCLOPramide) 10 mg Route: IM; Site: right gluteus; ll1 08:50 Follow up: Response: No adverse reaction ll1 Disposition: 16:38 Co-signature as Attending Physician, Mac ALEXIS was immediately available on-site ms3 in the Emergency Department for consultation in the care of the patient. Disposition Summary: 09/06/22 08:26 Discharge Ordered Location: Home snw Condition: Stable snw Diagnosis - Hiccough snw Followup: snw - With: Emergency Department - When: As needed - Reason: Worsening of condition Followup: snw - With: Private Physician - When: 2 - 3 days - Reason: Recheck today's complaints, Continuance of care, Re-evaluation by your physician Discharge Instructions: - Discharge Summary Sheet snw - Hiccups snw Forms: - Medication Reconciliation Form snw - Thank You Letter snw - Antibiotic Education snw - Prescription Opioid Use snw - Work release form ll1 Prescriptions: - Protonix 40 mg Oral Tablet - take 1 tablet by ORAL route once daily; 30 tablet; Refills: 0, Product snw Selection Permitted - Reglan 10 mg Oral Tablet - take 1 tablet by ORAL route every 6 hours . take 30 minutes before meals and at snw bedtime; 50 tablet; Refills: 0, Product Selection Permitted Signatures: Dispatcher [employer] Kimi Cali RN RN kl Waters, Shelly, FARROWING WORKER-C FARROWING WORKER-Csnw Hal Bellamy RN RN ll1 Mac Armendariz DO DO ms3
[2022-09-06] MEDS ORDERED: METOCLOPRAMIDE 10 MG/2mL INJ ONE (08:34)
[2022-09-06 08:57] VITALS: TEMP 98.4; O2SAT 97
[2022-09-06 08:58] VITALS: BP 114/69
== END 2022-09-06 08:51 | disposition home or self-care (01) ==
LOC: ER 06:23
DX: R06.6 Hiccough (principal)
CPT/HCPCS: 71046; 96372; 99283; J2765

== ENCOUNTER 2022-09-10 10:06 | Emergency (ER) | payer SELFPAY ==
--- OUTSIDE RECORDS SUMMARY | 2022-09-10 10:12 | XMS REPORT | Continuity of Care Document ---
:1990 Author Organization [facility] t Address [address] [place] [address] Care Team Providers Name Role Phone No, Pcp [facility] Primary Care Physician Unavailable Hemmati Ariana ALEMAN Attending Clinician Angelika SANCHEZ, Alka Attending Clinician 3, Odkaleigh Attending Clinician Unavailable Gage SANCHEZ, Idalmis Dykes Attending Clinician [phone] Payers Payer Name Policy Type Policy Number Effective Date Expiration Date S ource Problems Condition Condition Condition Status Onset Resolution Last Treating Co mments Source Name Details Category Date Date Treatment Clinician Date No known No known Disease [facility] active active College problems problems of Medicin e Sprain of Sprain of Problem Active Com mon left left [facility] wrist, wrist, - [facility] Pain in Pain in Problem Active Common joint of joint of [facility] left wrist left wrist - [facility] Closed Closed Problem Active Common nondisplac nondisplac [...] encounter encounter [facility]ondisplac N[facility]plac [facility] - [...] Center s Hydrocod Propensi Active Mild Other [facility] one-Acet ty to 04-06 reaction( Colle ge aminophe adverse 00:00: s): Other of n reaction 00 (See Medicin s to Comments) e drug hiccoughs x5 days Hydrocod Propensi Active [facility] ty to 04-02 [place] adverse 00:00: of reaction 00 Medicin s to e drug Social History Social Habit Start Date Stop Date Quantity Comments Source History of tobacco Cigarette Smoker [facility] use of Medicine History [facility] Alcohol Comment Medical C enter History SDOH [facility] Alcohol Std Drinks Medica l Center History SDKY [facility] Alcohol Binge Medical Addie ter Cigarettes smoked 2019-04-06 2019-04-[address] [facility] current (pack per 00:00:00 00:00:00 Medical Center day) - Reported Tobacco use and 2019-04-06 2019-04-[address] [facility] exposure 00:00:00 00:00:00 [facility] Alcohol intake 2019-04-06 2019-04-[address] [address] [facility] 00:00:00 00:00:00 non-drinker of Medical Ce nter alcohol (finding) History SDOH 2019-04-06 2019-04-[address] [facility] Alcohol Frequency 00:00:00 00:00:00 [facility] Sex Assigned At [address] [facility] 00[facility]00[facility] Smoking Status Start Date Stop Date Source Current some day smoker 2019-06-25 00:00:00 [facility] Current every day smoker 2019-04-06 00:00:00 [facility] Medications Ordered Filled Start Stop Current [...] dorzolamide 2018-09 2019- No 1[drp] Place 1 [facility] -timolol 0-08 10-08 Drop into Colle ge (COSOPT) 00:00: 00:00 the right of 22.3-6.8 00 :00 eye two Medicin MG/ML times e ophthalmic daily. solution Diflupredna 2018-0 Yes 1[drp] Place 1 B abimael te (DUREZOL 9-03 Drop into Col lege OP) 14:46: the right of 03 eye two Medicin times e daily. Bromfenac 2019-0 Yes 1[drp] Place 1 [place] maria Sodium 9-03 Drop into College (PROLENSA) 14:46: the right of 0.07 % SOLN 03 eye daily. Me dicin e Bromfenac 2019-0 Yes 1[drp] Place 1 [place] [facility] Sodium 8-13 Drop into College (PROLENSA) 15:34: the right of 0.07 % SOLN 47 eye daily. Me dicin e Bromfenac 2019-0 Yes 1[drp] Place 1 [place] mar[facility] Sodium 8-13 Drop into College (PROLENSA) 15:34: the right of 0.07 % SOLN 47 eye daily. Me dicin e Latanoprost 2019- 2019- No 1[drp] Place 1 [facility] alek Bunod 8-13 08-13 Drop into [...] to [place] Tartrate-Ti 8-13 08-13 eye. [place] molol 14:46: 00:00 of (COMBIGAN 58 :00 [...] dorzolamide 2019-0 2019- No 1[drp] Place 1 [facility] -timolol 8-13 10-08 Drop into Colle ge (COSOPT) 00:00: 00:00 the right of 22.3-6.8 00 :00 eye two Medicin MG/ML times e ophthalmic daily. solution Diflupredna 2019-0 Yes Apply to Ba ylor te (DUREZOL 8-06 eye. [place] OP) 14:58: of 53 Medicin e Brimonidine 2019-0 Yes Apply to Ba ylor Tartrate-Ti 8-06 eye. [place] molol 14:58: of (COMBIGAN 53 Medicin OP) e Latanoprost 2019-0 Yes Apply to Ba ylor alek Bunod 8-06 eye. [place] (VYZULTA 14:58: of OP) 53 Medicin e Diflupredna 2019-0 Yes Apply to Ba ylor te (DUREZOL 8-01 eye. [place] OP) 19:56: of 26 Medicin e Brimonidine 2019-0 Yes Apply to Ba ylor Tartrate-Ti 8-01 eye. [place] molol 19:56: [facility] Medic[facility] OP) e Latanoprost 2019-0 Yes Apply to Ba ylor alek Bunod 8-01 eye. [place] (VYZULTA 19:56: of OP) 26 Medicin e Diflupredna 2019-0 Yes Apply to Ba ylor te (DUREZOL 8-01 eye. [place] OP) 19:56: of 26 Medicin e Brimonidine 2019-0 Yes Apply to Ba ylor Tartrate-Ti 8-01 eye. [place] molol 19:56: of [facility] Medicin OP) e Latanoprost 2019-0 Yes Apply to Ba ylor alek Bunod 8-01 eye. [place] (VYZULTA 19:56: of OP) 26 Medicin e [...] trimethopri 2019-0 2019- No 1[drp] Place 1 [facility] m-polymyxin 8-01 08-13 Drop into Co llege b 00:00: 00:00 the right of (POLYTRIM) 00 :00 eye 3 Medicin ophthalmic times e solution daily. No known No [facility] e Procedures Procedure Date / Time Performed Performing Clinician [facility] e OCT, RETINA - OD - RIGHT 2019-06-09 13:52:38 Alka Carney [facility] mar[facility] [employer] HI COMPUTERIZED 2019-04-02 20:54:39 Alka Carney [facility] Cipriano corey of OPHTHALMIC IMAGING Medicine RETINA Plan of Care Planned Activity Planned Date Details Comments Source Future Scheduled TETANUS SHOT [facility] Renata ege of Test (ADULT) [code = Medicine TETANUS SHOT (ADULT)] Future Scheduled HIV SCREENING [code [employer] of Test = HIV SCREENING] Medicine Future Scheduled FLU VACCINE > 6 [facility] C ollege of Test MONTHS [code = FLU Medicine VACCINE > 6 MONTHS] Future Scheduled TETANUS SHOT [place] Renata ege of Test (ADULT) [code = Medicine TETANUS SHOT (ADULT)] Future Scheduled HIV SCREENING [code [employer] Test = HIV SCREENING] Medicine Future Scheduled FLU VACCINE > 6 [facility] C ollege of Test MONTHS [code = FLU Medicine VACCINE > 6 MONTHS] Future Scheduled TETANUS SHOT [facility] Renata ege of Test (ADULT) [code = Medicine TETANUS SHOT (ADULT)] Future Scheduled HIV SCREENING [code [employer] Test = HIV SCREENING] Medicine Future Scheduled FLU VACCINE > 6 [place] C ollege of Test MONTHS [code = FLU Medicine VACCINE > 6 MONTHS] Future Scheduled TETANUS SHOT [place] Renata ege of Test (ADULT) [code = Medicine TETANUS SHOT (ADULT)] Future Scheduled HIV SCREENING [code [employer] Test = HIV SCREENING] Medicine Future Scheduled FLU VACCINE > 6 [facility] C ollege of Test MONTHS [code = FLU Medicine VACCINE > 6 MONTHS] Future Scheduled TETANUS SHOT [place] Renata ege of Test (ADULT) [code = Medicine TETANUS SHOT (ADULT)] Future Scheduled HIV SCREENING [code [employer] Test = HIV SCREENING] Medicine Future Scheduled FLU VACCINE > 6 [place] C ollege of Test MONTHS [code = FLU Medicine VACCINE > 6 MONTHS] Future Scheduled TETANUS SHOT [place] Renata ege of Test (ADULT) [code = Medicine TETANUS SHOT (ADULT)] Future Scheduled HIV SCREENING [code [employer] Test = HIV SCREENING] Medicine Future Scheduled FLU VACCINE > 6 [place] C ollege of Test MONTHS [code = FLU Medicine VACCINE > 6 MONTHS] Future Scheduled TETANUS SHOT [facility] Renata ege of Test (ADULT) [code = Medicine TETANUS SHOT (ADULT)] Future Scheduled HIV SCREENING [code [employer] Test = HIV SCREENING] Medicine Future Scheduled FLU VACCINE > 6 [place] C ollege of Test MONTHS [code = FLU Medicine VACCINE > 6 MONTHS] Future Scheduled TETANUS SHOT [facility] Renata ege of Test (ADULT) [code = Medicine TETANUS SHOT (ADULT)] Future Scheduled HI SPECIAL EYE Ordered: [facility] Co llege of Test EXAM, INITIAL [code 04/02/2019 Medicine = 70310] Future Scheduled HIV SCREENING [code [employer] or [employer] of Test = HIV SCREENING] Medicine Future Scheduled FLU VACCINE > 6 [facility] C ollege of Test MONTHS [code = FLU Medicine VACCINE > 6 MONTHS] Encounters Start End Encounter Admission Attending Care Care Encounter Source Date/Time Date/Time Type Type Clinicians Facility Department ID 2019-06-25 2019-06-25 Office TORI Torres [id number] 10:03:44 11:02:29 Visit Ariana AMBULATOR [id number] Y 0.2.7.2.686 [id number] 300 2019-06-25 2019-06-25 Office TORI Torres [id number] [facility] 10:03:44 11:02:29 Visit Ariana AMBULATOR [id number] College Y 0.2.7.2.686 of [id number] [facility] 300 e 2019-06-09 2019-06-09 Office Alka Carney 1.2.840.11 [id number] 07:58:08 08:18:08 Visit 3, Ods AMBULATOR 350.1.13.21 Y 0.2.7.2.686 [id number] 300 2019-06-09 2019-06-09 Office Alka Carney 1.2.840.11 [id number] [facility] 07:58:08 08:18:08 Visit 3, Ods AMBULATOR 350.1.13.21 College Y 0.2.7.2.686 of [id number] [facility] 300 e 2019-05-05 2019-05-05 Office TORI Carney [id number] 09:31:26 11:13:37 Visit Alka AMBULATOR 350.1.13.21 Y 0.2.7.2.686 [id number] 300 2019-05-05 2019-05-05 Office TORI Carney [id number] [facility] 09:31:26 11:13:37 Visit Alka AMBULATOR 350.1.13.21 College Y 0.2.7.2.686 of [id number] Medi kaitlin 300 e 2019-04-23 2019-04-23 Office Gage VALLE 1.2.840.114 [id number] 08:42:13 08:52:13 Visit , Idalmis AMBULATOR 350.1.13.21 Donis Y 0.2.7.2.686 [id number] 300 2019-04-23 2019-04-23 Office Gage VALLE 1.2.840.114 [id number] [facility] 08:42:13 08:52:13 Visit , Idalmis AMBULATOR 350.1.13.21 College Donis Y 0.2.7.2.686 of [id number] [facility] kaitlin 300 e 2019-04-14 2019-04-14 Office TORI Carney 1.2.840.114 [id number] 09:22:19 09:37:19 Visit Alka AMBULATOR 350.1.13.21 Y 0.2.7.2.686 [id number] 300 2019-04-14 2019-04-14 Office TORI Carney [id number] [facility] 09:22:19 09:37:19 Visit Alka AMBULATOR 350.1.13.21 College Y 0.2.7.2.686 of [id number] [facility] kaitlin 300 e 2019-04-07 2019-04-07 Office Gage VALLE 1.2.840.114 [id number] 09:41:23 10:03:49 Visit , Idalmis AMBULATOR 350.1.13.21 Donis Y 0.2.7.2.686 [id number] 300 2019-04-07 2019-04-07 Office Gage VALLE 1.2.840.114 [id number] [facility] 09:41:23 10:03:49 Visit , Idalmis AMBULATOR 350.1.13.21 College Donis Y 0.2.7.2.686 of [id number] Medi kaitlin 300 e 2019-04-07 2019-04-07 Office TORI Carney 1.2.840.114 [id number] 08:37:41 08:52:41 Visit Alka AMBULATOR 350.1.13.21 Y 0.2.7.2.686 [id number] 300 2019-04-07 2019-04-07 Office TORI Carney 1.2.840.[id number] [place] [address] 08:37:41 08:52:41 Visit Alka AMBULATOR 350.1.13.21 College Y 0.2.7.2.686 of [id number] [facility] 300 e 2019-04-02 2019-04-02 Office Alka Carney MEGANAnita 1.2.840.11 4 [id number] 15:43:31 16:28:31 Visit 3, Ods AMBULATOR 350.1.13.21 Y 0.2.7.2.686 [id number] 300 2019-04-02 2019-04-02 Office Alka Carney MEGANAnita 1.2.840.11 [id number] [facility] 15:43:31 16:28:31 Visit 3, Ods AMBULATOR 350.1.13.21 College Y 0.2.7.2.686 of [id number] [facility] 300 e 2018-12-29 2018-12-29 Out[facility] [id number] Common 10:30:00 10:30:00 [facility] 2018-11-26 2018-11-26 [facility] [id number] Common 08:30:00 08:30:00 t [facility] Bone [facility] Sp[facility] t and [facility] - [facility] 2018-10-29 2018-10-29 [facility] [id number] Common 08:30:00 08:30:00 t Bone Bone [facility] Spiri t and Joint [facility] 2018-10-15 2018-10-15 [id number] Common 09:00:00 09:00:00 t [facility] Bone [facility] t [facility] Results Test Description Test Time Test Comments Results Result Sour e Comments OCT, RETINA - OD 2019-06-09 [place] OCTOD: [place] [facility] - RIGHT EYE 13:57:25 310, wnlOS: 335, College of mild irregularity Medicin e along inner surface, blood still there, but much improved and no evident fluid centrally
[2022-09-10] MEDS ORDERED: PANTOPRAZOLE 40 MG INJ ONE (11:04)
[2022-09-10] MEDS ORDERED: METOCLOPRAMIDE 10 MG/2mL INJ ONE (11:04)
[2022-09-10] MEDS ORDERED: NA CHLORIDE 0.9% 1,000 ML ONE (11:04)
[2022-09-10 11:07] LABS: Protime INR 1.11
[2022-09-10 11:10] LABS: Absolute Lymphocytes (CBC) 1.7 K/uL (0.7-4.9); Hematocrit 41.4 % (39.6-49.0); Lymphocytes % 24.2 % (15.3-44.8); MCV 83.3 fL (80-100); MPV 7.8 fL (7.6-11.3); RBC Red Blood Cell Count 4.97 M/uL (4.33-5.43)
[2022-09-10 11:32] LABS: Albumin 4.3 g/dL (3.4-5.0); Bilirubin Direct 0.3 mg/dL (0-0.2); Bilirubin Total 1.4 mg/dL (0.2-1.0); Magnesium 1.9 mg/dL (1.6-2.4); Potassium 3.7 mmol/L (3.5-5.1); Protein, Total 7.4 g/dL (6.4-8.2); Troponin High Sensitivity 4.7 pg/mL (<58.9)
--- NOTE | 2022-09-10 11:34 | RAD REPORT ---
EXAM DESCRIPTION: RAD - Chest Single View - 09/10/2022 11:23 am CLINICAL HISTORY: COUGH COMPARISON: Two view chest 09/06/2022 TECHNIQUE: AP portable chest image was obtained 09/10/2022 11:23 am . FINDINGS: Lungs are clear. Lung parenchyma stable from prior imaging. Heart and vasculature are norm al. No measurable pleural effusion and no pneumothorax. No acute bony abnormality seen. No acute aort ic findings suspected. IMPRESSION: No acute cardiopulmonary process. No significant change from comparison study.
[2022-09-10] MEDS ORDERED: CHLORPROMAZINE 25 MG TAB PO ONE (12:00)
--- NOTE | 2022-09-10 12:09 | RAD REPORT ---
EXAM DESCRIPTION: CT - Chest For Pe Angio - 09/10/2022 11:50 am CLINICAL HISTORY: cp COMPARISON: Chest Single View dated 09/10/2022 TECHNIQUE: Dynamically enhanced 3 mm thick images of the chest were obtained during administration o f approximately 150mL Isovue 370 IV contrast. Coronal and oblique MIP reconstruction images were gene rated and reviewed. Exam utilizes a protocol to evaluate the pulmonary arterial tree. All CT scans are performed using dose optimization technique as appropriate and may include automated exposure control or mA/KV adjustment according to patient size. FINDINGS: No pulmonary emboli are identified. There is a mild motion artifact that limits the far pe ripheral branch assessment. Far peripheral emboli are not suspected. The aorta as imaged shows no acute or suspicious finding. No pericardial thickening or effusion. No infiltrate or mass in the lung parenchyma. No pleural effusion or pleural thickening. No mediastinal or hilar suspicious masses. No chest wall masses or abnormal axillary lymphadenopathy. Minimal hiatal hernia is seen. IMPRESSION: No pulmonary emboli identifiable. Minimal hiatal hernia is present. No mediastinal mass or lymphadenopathy identifiable. No other significant or suspicious findings.
--- NOTE | 2022-09-10 13:25 | ER ---
Nurse's Notes [facility] Name: Ace Moran Age: 32 yrs Sex: Male : 1990 Arrival Date: 09/10/2022 Time: : Bed 24 Private MD: Diagnosis: Hiccough;Congenital hiatus hernia Presentation: 09/10 10:21 Chief complaint: Patient states: bad hiccups X 10 days, was seen here once and was iw given some medicine , never went away . he is vomiting now and there was blood in his vomit, he can't keep food down. Coronavirus screen: At this time, the client does not indicate any symptoms associated with coronavirus-19. Ebola Screen: Patient negative for fever greater than or equal to 101.5 degrees Fahrenheit, and additional compatible Ebola Virus Disease symptoms Patient denies exposure to infectious person. Patient denies travel to an Ebola-affected area in the 21 days before illness onset. No symptoms or risks identified at this time. Initial Sepsis Screen: Does the patient meet any 2 criteria? No. Patient's initial sepsis screen is negative. Does the patient have a suspected source of infection? No. Patient's initial sepsis screen is negative. Risk Assessment: Do you want to hurt yourself or someone else? Patient reports no desire to harm self or others. 10:21 Method Of Arrival: Ambulatory iw 10:21 Onset of symptoms was September 01, 2022. iw 10:21 Acuity: REG 3 iw Triage Assessment: 11:13 Respiratory: Onset: The symptoms/episode began/occurred gradually, the patient has mild ap3 shortness of breath. Historical: - Allergies: 10:24 Hydrocodone-Acetaminophen; iw - PMHx: 10:24 None; iw - PSHx: 10:24 left eye; left calf; right hand; iw - Immunization history:: Client reports having NOT received the Covid vaccine. - Social history:: Smoking status: Patient reports the use of cigarette tobacco products. Screenin:12 [facility] ED Fall Risk Assessment (Adult) History of falling in the last 3 months, ap3 including since admission No falls in past 3 months (0 pts). Abuse screen: Denies threats or abuse. Nutritional screening: continued hiccups. Tuberculosis screening: No symptoms or risk factors identified. Assessment: 11:12 General: Appears uncomfortable, Behavior is calm, cooperative. Pain: Denies pain. ap3 Neuro: Level of Consciousness is awake, alert, obeys commands, Oriented to person, place, time, Moves all extremities. Gait is steady. Cardiovascular: Patient's skin is warm and dry. Respiratory: Airway is patent Respiratory effort is even, unlabored, Breath sounds are clear bilaterally. GI: Reports nausea. 12:05 Reassessment: report received from DEE Strauss. mb9 13:15 General: Appears uncomfortable, Behavior is calm, cooperative. Pain: Denies pain. mb9 Neuro: Level of Consciousness is awake, alert, obeys commands, Oriented to person, place, time, Moves all extremities. Gait is steady. Cardiovascular: Patient's skin is warm and dry. Rhythm is regular. Respiratory: Airway is patent Respiratory effort is even, unlabored, Respiratory pattern is regular, symmetrical, Breath sounds are clear bilaterally. GI: Abdomen is flat, non-distended. Derm: Skin is pink, warm \T\ dry. 13:28 Reassessment: pt continues to hiccups. Willam SANCHEZ, notified. mb9 14:26 Reassessment: No changes from previously documented assessment. Patient and/or family mb9 updated on plan of care and expected duration. Pain level reassessed. Patient is alert, oriented x 3, equal unlabored respirations, skin warm/dry/pink. Vital Signs: 10:21 BP 120 / 52; Pulse 78; Resp 16; Temp 98.3; Pulse Ox 96% on R/A; Weight 79.38 kg; Height iw 5 ft. 9 in. (175.26 cm); 13:15 BP 122 / 30; Pulse 72; Resp 16; Pulse Ox 97% on R/A; mb9 14:26 BP 131 / 78; Pulse 74; Resp 14; Pulse Ox 100% ; mb9 10:21 Body Mass Index 25.84 (79.38 kg, 175.26 cm) iw ED Course: 10:17 Patient arrived in ED. rg4 10:21 Charles Quarles MD is Attending Physician. fei 10:24 Triage completed. iw 10:25 Arm band placed on. iw 10:31 Rica Power, RN is Primary Nurse. ap3 10:56 Initial lab(s) drawn, by me, sent to lab. EKG done, by ED staff, reviewed by Charles Quarles MD. Inserted saline lock: 20 gauge in right forearm, using aseptic technique. Blood collected. 10:56 CBC with Diff Sent. em1 10:56 LFT's Sent. em1 10:56 Magnesium Sent. em1 10:56 NT PRO-BNP Sent. em1 10:56 PT-INR Sent. em1 10:56 Troponin HS Sent. em1 11:13 Patient has correct armband on for positive identification. Placed in gown. Call light ap3 in reach. Side rails up X 1. Adult w/ patient. Pulse ox on. NIBP on. Door closed. Noise minimized. 11:25 XRAY Chest (1 view) In Process Unspecified. EDMS 11:51 CT Chest For PE Angio In Process Unspecified. EDMS 13:24 Javon Lees MD is Referral Physician. [facility] 14:26 No provider procedures requiring assistance completed. IV discontinued, intact, mb9 bleeding controlled, No redness/swelling at site. Pressure dressing applied. Administered Medications: 11:03 Not Given (Physician Discretion): NS 0.9% 1000 ml IV at 1 bolus Per protocol; 1000 mL ap3 bolus 11:11 Drug: ProTONIX (pantoprazole) 40 mg Route: IVP; Site: right wrist; ap3 11:11 Drug: Reglan (metoCLOPramide) 10 mg Route: IVP; Site: right wrist; ap3 11:12 Drug: NS 0.9% 1000 ml Route: IV; Rate: 1 bolus; Site: right wrist; ap3 11:57 Not Given (Duplicate Order): chlorproMAZINE 50 mg IM once fei 12:16 Drug: chlorproMAZINE 50 mg Route: PO; mb9 13:16 Follow up: Response: No adverse reaction mb9 13:34 Drug: GI Cocktail without - (Maalox Suspension 30 ml, Lidocaine Liquid 2 % 15 mb9 ml) Route: PO; Outcome: 13:24 Discharge ordered by . fei 14:26 Discharged to home ambulatory. mb9 14:26 Condition: stable 14:26 Discharge instructions given to patient, Instructed on discharge instructions, follow up and referral plans. Demonstrated understanding of instructions, follow-up care, medications, Prescriptions given X 3. 14:26 Patient left the ED. mb9 Signatures: Dispatcher [employer] Charles Culp MD MD cha Williams, Irene, RN RN iw Carlitos Solorio emNery Marrero rg4 Rica Power RN RN ap3 Kaitlin Overton, RN RN mb9 Corrections: (The following items were deleted from the chart) 10:21 Chief complaint: Patient states: bad hiccups X 10 days, was seen here once and iw was given some medicine , never went away iw 10: Pulse 78bpm; Resp 16bpm; Pulse Ox 96% RA; Temp 98.3F; iw iw 10:21 Pulse 78bpm; Resp 16bpm; Pulse Ox 96% RA; Temp 98.3F; iw iw 10:24 Allergies: Hydrocodone-Ibuprofen; iw iw
--- NOTE | 2022-09-10 13:25 | EDPHYS ---
Physician Documentation [facility] Name: Ace Moran Age: 32 yrs Sex: Male : 1990 Arrival Date: 09/10/2022 Time: : Bed 24 Private MD: ED Physician Charles Quarles HPI: 09/10 12:20 This 32 yrs old Male presents to ER via Ambulatory with complaints of Hiccups fei x 10 days, Breathing Difficulty, Spitting Up Blood. 12:20 The patient has shortness of breath at rest, with light activity. Onset: The fei symptoms/episode began/occurred 10 day(s) ago. Duration: The symptoms are continuous, and are steadily getting worse. The patient's shortness of breath has no apparent modifying factors. Associated signs and symptoms: The patient has no apparent associated signs or symptoms. Severity of symptoms: At their worst the symptoms were mild moderate in the emergency department the symptoms are unchanged. The patient has not experienced similar symptoms in the past. Historical: - Allergies: 10:24 Hydrocodone-Acetaminophen; iw - PMHx: 10:24 None; iw - PSHx: 10:24 left eye; left calf; right hand; iw - Immunization history:: Client reports having NOT received the Covid vaccine. - Social history:: Smoking status: Patient reports the use of cigarette tobacco products. ROS: 12:21 Constitutional: Negative for fever, chills, and weight loss, Eyes: Negative for injury, fei pain, redness, and discharge, ENT: Negative for injury, pain, and discharge, Neck: Negative for injury, pain, and swelling, Cardiovascular: Negative for chest pain, palpitations, and edema, Respiratory: Negative for shortness of breath, cough, wheezing, and pleuritic chest pain, Abdomen/GI: Negative for abdominal pain, nausea, vomiting, diarrhea, and constipation, Back: Negative for injury and pain, : Negative for injury, bleeding, discharge, and swelling, MS/Extremity: Negative for injury and deformity, Skin: Negative for injury, rash, and discoloration, Neuro: Negative for headache, weakness, numbness, tingling, and seizure, Psych: Negative for depression, anxiety, suicide ideation, homicidal ideation, and hallucinations, Allergy/Immunology: Negative for hives, rash, and allergies, Endocrine: Negative for neck swelling, polydipsia, polyuria, polyphagia, and marked weight changes, Hematologic/Lymphatic: Negative for swollen nodes, abnormal bleeding, and unusual bruising. Exam: 12:21 Constitutional: This is a well developed, well nourished patient who is awake, alert, fei and in no acute distress. Head/Face: Normocephalic, atraumatic. Eyes: Pupils equal round and reactive to light, extra-ocular motions intact. Lids and lashes normal. Conjunctiva and sclera are non-icteric and not injected. Cornea within normal limits. Periorbital areas with no swelling, redness, or edema. ENT: Nares patent. No nasal discharge, no septal abnormalities noted. Tympanic membranes are normal and external auditory canals are clear. Oropharynx with no redness, swelling, or masses, exudates, or evidence of obstruction, uvula midline. Mucous membranes moist. Neck: Trachea midline, no thyromegaly or masses palpated, and no cervical lymphadenopathy. Supple, full range of motion without nuchal rigidity, or vertebral point tenderness. No Meningismus. Chest/axilla: Normal chest wall appearance and motion. Nontender with no deformity. No lesions are appreciated. Cardiovascular: Regular rate and rhythm with a normal S1 and S2. No gallops, murmurs, or rubs. Normal PMI, no JVD. No pulse deficits. Respiratory: Lungs have equal breath sounds bilaterally, clear to auscultation and percussion. No rales, rhonchi or wheezes noted. No increased work of breathing, no retractions or nasal flaring. Abdomen/GI: Soft, non-tender, with normal bowel sounds. No distension or tympany. No guarding or rebound. No evidence of tenderness throughout. Back: No spinal tenderness. No costovertebral tenderness. Full range of motion. Male : Normal genitalia with no discharge or lesions. Skin: Warm, dry with normal turgor. Normal color with no rashes, no lesions, and no evidence of cellulitis. MS/ Extremity: Pulses equal, no cyanosis. Neurovascular intact. Full, normal range of motion. Neuro: Awake and alert, GCS 15, oriented to person, place, time, and situation. Cranial nerves II-XII grossly intact. Motor strength 5/5 in all extremities. Sensory grossly intact. Cerebellar exam normal. Normal gait. Psych: Awake, alert, with orientation to person, place and time. Behavior, mood, and affect are within normal limits. 12:21 ECG was reviewed by the Attending Physician. Vital Signs: 10:21 BP 120 / 52; Pulse 78; Resp 16; Temp 98.3; Pulse Ox 96% on R/A; Weight 79.38 kg; Height iw 5 ft. 9 in. (175.26 cm); 13:15 BP 122 / 30; Pulse 72; Resp 16; Pulse Ox 97% on R/A; mb9 14:26 BP 131 / 78; Pulse 74; Resp 14; Pulse Ox 100% ; mb9 10:21 Body Mass Index 25.84 (79.38 kg, 175.26 cm) iw MDM: 10:21 Patient medically screened. [facility] 12:22 Differential diagnosis: abnormal EKG, acute myocardial infarction, acute pericarditis, fei chest wall pain, cholecystitis, Cholelithiasis costochondritis, hiatal hernia, Hayley-Perera syndrome, pancreatitis, peptic ulcer disease, pulmonary embolus, unstable angina. HEART Score: History: Slightly Suspicious (0), ECG: Normal (0), Age: < or = 45 years (0), Risk Factors: No Risk Factors Known (0), Troponin: < or = 1 x Normal Limit (0). SHUKRI Risk Score: TOTAL SCORE = 0. Data reviewed: vital signs, nurses notes, lab test result(s), EKG, radiologic studies, CT scan, plain films. Consideration of Admission/Observation Patient was admitted/placed on observation. Escalation of care including admission/observation considered. Management of patient was discussed with the following:. I considered the following discharge prescriptions or medication management in the emergency department Medications were administered in the Emergency Department. See MAR. Independent interpretation of the following test(s) in the Emergency Department EKG: See my EKG interpretation above X-Ray: My interpretation is radiologist. CT Scan: My interpretation is radiologist. Discussion of test interpretation with radiology: I had a discussion with radiology regarding a test interpretation. rebekah. Test considered but Not performed: MRI: mri chest. External Records Reviewed:. 09/10 10:33 Order name: Basic Metabolic Panel; Complete Time: 11:43 fei 09/10 10:33 Order name: CBC with Diff; Complete Time: 11:43 fei 09/10 10:33 Order name: LFT's; Complete Time: 11:43 [facility] 09/10 10:33 Order name: Magnesium; Complete Time: 11:43 [facility] 09/10 10:33 Order name: NT PRO-BNP; Complete Time: 11:43 [facility] 09/10 10:33 Order name: PT-INR; Complete Time: 11:43 [facility] 09/10 10:33 Order name: Troponin HS; Complete Time: 11:43 [facility] 09/10 10:33 Order name: XRAY Chest (1 view); Complete Time: 11:43 [facility] 09/10 10:33 Order name: CT Chest For PE Angio; Complete Time: 13:23 [facility] 09/10 10:33 Order name: EKG; Complete Time: 10:33 [facility] 09/10 10:33 Order name: Cardiac monitoring; Complete Time: 11:03 [facility] 09/10 10:33 Order name: EKG - Nurse/Tech; Complete Time: 10:56 [facility] 09/10 10:33 Order name: IV Saline Lock; Complete Time: 10:56 [facility] 09/10 10:33 Order name: Labs collected and sent; Complete Time: 10:56 [facility] 09/10 10:33 Order name: O2 Per Protocol; Complete Time: 10:57 [facility] 09/10 10:33 Order name: O2 Sat Monitoring; Complete Time: 10:57 [facility] EC:21 Rate is 50 beats/min. Rhythm is regular. QRS [place] is Normal. [place] interval is normal. QRS fei interval is normal. QT interval is normal. No Q waves. T waves are Normal. No ST changes noted. Clinical impression: NSR w/ Non-specific ST/T Changes and No evidence of ischemia. Interpreted by me. Reviewed by me. Administered Medications: 11:03 Not Given (Physician Discretion): NS 0.9% 1000 ml IV at 1 bolus Per protocol; 1000 mL ap3 bolus 11:11 Drug: ProTONIX (pantoprazole) 40 mg Route: IVP; Site: right wrist; ap3 11:11 Drug: Reglan (metoCLOPramide) 10 mg Route: IVP; Site: right wrist; ap3 11:12 Drug: NS 0.9% 1000 ml Route: IV; Rate: 1 bolus; Site: right wrist; ap3 11:57 Not Given (Duplicate Order): chlorproMAZINE 50 mg IM once fei 12:16 Drug: chlorproMAZINE 50 mg Route: PO; mb9 13:16 Follow up: Response: No adverse reaction 9 13:34 Drug: GI Cocktail without - (Maalox Suspension 30 ml, Lidocaine Liquid 2 % 15 mb9 ml) Route: PO; Disposition Summary: 09/10/22 13:24 Discharge Ordered Location: Home fei Problem: new fei Symptoms: have improved fei Condition: Stable fei Diagnosis - Hiccough fei - Congenital hiatus hernia fei Followup: fei - With: Private Physician - When: 2 - 3 days - Reason: Recheck today's complaints, Continuance of care, Re-evaluation by your physician Followup: fei - With: Javon Lees MD - When: 2 - 3 days - Reason: Recheck today's complaints, Re-evaluation by your physician Discharge Instructions: - Discharge Summary Sheet fei - Hiatal Hernia fei - Hiccups [facility] - Hernia, Adult, [id number] [facility] Forms: - Medication Reconciliation Form [facility] - Thank You Letter [facility] - Antibiotic Education [facility] - Prescription Opioid Use [facility] - Work release form mb9 Prescriptions: - Protonix 40 mg Oral Tablet - take 1 tablet by ORAL route once daily; 30 tablet; Refills: 0, Product [facility] Selection Permitted - Chlorpromazine 25 mg Oral Tablet - take 1 tablet by ORAL route every 8 hours; 21 tablet; Refills: 0, Product [facility] Selection Permitted - Reglan 10 mg Oral Tablet - take 1 tablet by ORAL route every 6 hours . take 30 minutes before meals and at [facility] bedtime; 28 tablet; Refills: 0, Product Selection Permitted Signatures: Dispatcher [employer] Charles Culp MD MD cha Waters, Shelly, COLLEGE SERVICE OFFICER-C COLLEGE SERVICE OFFICER-Csnw Krista Peter RN RN iw Prokisch, Amanda, RN RN phillip3 Kaitlin Overton, RN RN mb9 Corrections: (The following items were deleted from the chart) 10:25 10:24 Allergies: Hydrocodone-Ibuprofen; nehemias del cid
[2022-09-10] MEDS ORDERED: LIDOCAINE VISCOUS 2% SOLN 15 ML UDC ONE (13:34)
[2022-09-10] MEDS ORDERED: MAGNES/ALUMIN/SIMET 30ML UCUP ONE (13:34)
[2022-09-10 14:40] VITALS: TEMP 98.3
[2022-09-10 14:42] VITALS: BP 131/78; O2SAT 100
--- NOTE | 2022-09-11 14:25 | EKG ---
Test Date: 2022-09-10 Test Time: 10:41:55 Yarn Spinner: NOEMI MEASUREMENT RESULTS: Intervals: Rate: 80 ME: 150 QRSD: 78 QT: 362 QTc: 417 [place]: P: 67 ME: 150 QRS: 78 T: 30 INTERPRETIVE STATEMENTS: Sinus rhythm with premature ventricular complexes or fusion complexes Otherwise normal ECG No previous ECG available for comparison Electronically Signed On 09-11-22 14:22:54 SYSTEM CONSULTANT by Tejas Payne
== END 2022-09-10 14:26 | disposition home or self-care (01) ==
LOC: ER 10:06
DX: R06.6 Hiccough (principal); Q40.1 Congenital hiatus hernia; Z72.0 Tobacco use; Z88.5 Allergy status to narcotic agent
CPT/HCPCS: 36415; 71045; 71275; 80048; 80076; 83735; 83880; 84484; 85025; 85610; 93005; 96374; 96375; 99284; C9113; J2765; J7030; Q0161; Q9967